=== PATIENT | female | born 1955 | race Caucasian/White ===

== ENCOUNTER 2025-06-29 13:09 | Inpatient (IN) ==
[2025-06-29] MEDS: 0.9 % SODIUM CHLORIDE 2,000 ML IV ONE (13:52)
[2025-06-29] MEDS: cefTRIAXone 1 GM VIAL IV ONE ×2 (13:52→19:01)
[2025-06-29 14:15] LABS: Basophils # (Auto) 0.03 K/mcL (0.00-0.30); Basophils % (Auto) 0.3 % (0.0-2.0); Eosinophils # (Auto) 0.03 K/mcL (0.00-0.70); Eosinophils % (Auto) 0.3 % (0.0-7.0); Hematocrit 40.7 % (34.1-44.9); Hemoglobin 14.2 g/dL (11.2-15.7); Lymphocytes # (Auto) 0.28 K/mcL (1.50-4.80); Lymphocytes % (Auto) 2.5 % (15.5-49.0); Mean Corpuscular HGB Conc 34.9 g/dL (31.0-36.0); Monocytes # (Auto) 0.28 K/mcL (0.10-0.90); Monocytes % (Auto) 2.5 % (1.0-12.0); Neutrophils % (Auto) 93.9 % (38.0-78.0); Platelet Count 271 K/mcL (140-440); RBC 4.59 M/mcL (3.59-5.38); WBC 11.1 K/mcL (4.5-11.0)
[2025-06-29 14:49] LABS: ALT/SGPT 44 U/L (<40); AST/SGOT 48 U/L (<32); Albumin 3.5 gm/dL (3.2-5.2); Albumin/Globulin Ratio 1.0 (1.0-2.3); Alkaline Phosphatase 118 U/L (39-117); Anion Gap 17.0 (8.0-16.0); Bilirubin,Total 1.4 mg/dL (0.1-1.0); Blood Urea Nitrogen 24 mg/dL (8-23); Calcium 10.4 mg/dL (8.6-10.4); Carbon Dioxide 20 mmol/L (22-30); Chloride 94 mmol/L (96-108); Globulin 3.6 gm/dL (2.2-3.7); Glucose 465 mg/dL (70-105); Potassium 4.0 mmol/L (3.3-5.1); Sodium 131 mmol/L (133-145)
[2025-06-29] MEDS: INSULIN REGULAR, HUMAN 1 UNIT/0.01 ML UNIT IV ONE (15:17)
[2025-06-29 15:59] LABS: Bacteria,Urine Many /hpf (0); Bilirubin,Urine NEGATIVE (Negative); Color,Urine RED; Glucose,Urine (UA) >=1000 mg/dL (Negative); Ketones,Urine TRACE mg/dL (Negative); Leukocyte Esterase,Urine SMALL /uL (Negative); PH,Urine 6.0 (5.0-9.0); Protein,Urine NEGATIVE (Negative); Specific Gravity,Urine <= 1.005 (1.000-1.035); Urobilinogen,Urine 0.2 mg/dL
[2025-06-29] MEDS: LACTATED RINGERS 1,000 ML IV SCH (17:45)
[2025-06-29 19:23] LABS: Anion Gap 13.0 (8.0-16.0); Blood Urea Nitrogen 22 mg/dL (8-23); Calcium 9.3 mg/dL (8.6-10.4); Carbon Dioxide 22 mmol/L (22-30); Chloride 99 mmol/L (96-108); Glucose 318 mg/dL (70-105); Potassium 3.4 mmol/L (3.3-5.1); Sodium 134 mmol/L (133-145)
[2025-06-29] MEDS: INSULIN REGULAR, HUMAN 1 UNIT/0.01 ML UNIT SQ ONE ×2 (20:01→20:22)
[2025-06-29] MEDS: KETOROLAC 15 MG/ML VIAL IV ONE (20:03)
[2025-06-29] MEDS: POTASSIUM CHLORIDE 20 MEQ TABLET PO ONE ×2 (20:03→20:22)
[2025-06-29] MEDS ORDERED: SENNOSIDES 1 TABLET PO PRN (20:34)
[2025-06-29] MEDS ORDERED: LACTULOSE 20 GM/30 ML ORAL.SOL PO PRN (20:34)
[2025-06-29] MEDS ORDERED: IPRATROPIUM/ALBUTEROL 3 ML AMPUL.NEB NEB PRN (20:34)
[2025-06-29] MEDS ORDERED: ONDANSETRON 4 MG/2 ML VIAL IV PRN (20:34)
[2025-06-29] MEDS ORDERED: DEXTROSE 50% 50 ML VIAL IV PRN (20:34)
[2025-06-29] MEDS ORDERED: DEXTROSE 31 GM ORAL.SUSP PO PRN (20:34)
[2025-06-29] MEDS: DOCUSATE SODIUM 100 MG CAPSULE PO SCH (21:38)
[2025-06-29] MEDS: INSULIN LISPRO 1 UNIT/0.01 ML UNIT SQ SCH (21:47)
[2025-06-29] MEDS: 0.9 % SODIUM CHLORIDE 10 ML SYRINGE IV SCH (21:47)
[2025-06-29] MEDS: PIPERACILLIN SODIUM/TAZOBACTAM 3.375 GM in DEXTROSE 5% IN WATER 50 ML IV SCH (21:47)
[2025-06-29] MEDS: HEPARIN 5,000 UNIT/ML VIAL SQ SCH (21:47)
[2025-06-30] MEDS: INSULIN LISPRO 1 UNIT/0.01 ML UNIT SQ SCH ×2 (00:55→12:20)
[2025-06-30] MEDS: INSULIN LISPRO 1 UNIT/0.01 ML UNIT SQ ONE ×2 (00:59→04:40)
[2025-06-30] MEDS: PIPERACILLIN SODIUM/TAZOBACTAM 3.375 GM in DEXTROSE 5% IN WATER 100 ML IV SCH (05:26)
[2025-06-30 07:00] LABS: ALT/SGPT 29 U/L (<40); AST/SGOT 29 U/L (<32); Albumin 2.9 gm/dL (3.2-5.2); Albumin/Globulin Ratio 0.9 (1.0-2.3); Alkaline Phosphatase 81 U/L (39-117); Anion Gap 12.0 (8.0-16.0); Bilirubin,Total 0.6 mg/dL (0.1-1.0); Blood Urea Nitrogen 25 mg/dL (8-23); Calcium 9.2 mg/dL (8.6-10.4); Carbon Dioxide 24 mmol/L (22-30); Chloride 101 mmol/L (96-108); Globulin 3.1 gm/dL (2.2-3.7); Glucose 202 mg/dL (70-105); Potassium 3.5 mmol/L (3.3-5.1); Sodium 137 mmol/L (133-145)
[2025-06-30 07:01] LABS: Phosphorous 2.8 mg/dL (2.5-4.5)
[2025-06-30 07:27] LABS: Basophils # (Auto) 0.02 K/mcL (0.00-0.30); Basophils % (Auto) 0.2 % (0.0-2.0); Eosinophils # (Auto) 0.02 K/mcL (0.00-0.70); Eosinophils % (Auto) 0.2 % (0.0-7.0); Hematocrit 35.9 % (34.1-44.9); Hemoglobin 12.4 g/dL (11.2-15.7); Lymphocytes # (Auto) 0.61 K/mcL (1.50-4.80); Lymphocytes % (Auto) 5.7 % (15.5-49.0); Mean Corpuscular HGB Conc 34.5 g/dL (31.0-36.0); Monocytes # (Auto) 0.76 K/mcL (0.10-0.90); Monocytes % (Auto) 7.1 % (1.0-12.0); Neutrophils % (Auto) 86.3 % (38.0-78.0); Platelet Count 154 K/mcL (140-440); RBC 3.93 M/mcL (3.59-5.38); WBC 10.7 K/mcL (4.5-11.0)
[2025-06-30] MEDS: OMEPRAZOLE 20 MG CAPSULE PO SCH (07:27)
[2025-06-30 07:54] LABS: Estimated Average Glucose(eAG) 341 mg/dL; Hemoglobin A1C 13.5 % Hgb (4.0-6.0)
[2025-06-30] MEDS: GLIMEPIRIDE 2 MG TABLET PO SCH (08:24)
[2025-06-30] MEDS: FERROUS SULFATE 325 MG TABLET PO SCH (08:24)
[2025-06-30] MEDS: INSULIN GLARGINE, HUMAN 1 UNIT/0.01 ML SQ SCH (08:26)
[2025-06-30] MEDS ORDERED: DEXTROSE 50% 50 ML VIAL IV PRN (09:21)
[2025-06-30] MEDS ORDERED: DEXTROSE 31 GM ORAL.SUSP PO PRN (09:21)
[2025-06-30] MEDS ORDERED: NOREPINEPHRINE BITARTRATE 16 MG in 0.9 % SODIUM CHLORIDE 234 ML IV SCH (09:30)
[2025-06-30] MEDS: 0.9 % SODIUM CHLORIDE 250 ML IV SCH (09:50)
[2025-06-30] MEDS: MAGNESIUM SULFATE 4 GM/100 ML BAG IV SCH (10:25)
[2025-06-30] MEDS: IBUPROFEN 600 MG TABLET PO PRN (10:28)
[2025-06-30] MEDS: NOREPINEPHRINE 250 ML IV SCH (10:51)
[2025-07-01 06:46] LABS: Basophils # (Auto) 0.02 K/mcL (0.00-0.30); Basophils % (Auto) 0.3 % (0.0-2.0); Eosinophils # (Auto) 0.11 K/mcL (0.00-0.70); Eosinophils % (Auto) 1.5 % (0.0-7.0); Hematocrit 34.2 % (34.1-44.9); Hemoglobin 11.6 g/dL (11.2-15.7); Lymphocytes # (Auto) 0.74 K/mcL (1.50-4.80); Lymphocytes % (Auto) 10.2 % (15.5-49.0); Mean Corpuscular HGB Conc 33.9 g/dL (31.0-36.0); Monocytes # (Auto) 0.60 K/mcL (0.10-0.90); Monocytes % (Auto) 8.3 % (1.0-12.0); Neutrophils % (Auto) 79.1 % (38.0-78.0); Platelet Count 126 K/mcL (140-440); RBC 3.72 M/mcL (3.59-5.38); WBC 7.2 K/mcL (4.5-11.0)
[2025-07-01 07:07] LABS: Phosphorous 2.8 mg/dL (2.5-4.5)
[2025-07-01 07:52] LABS: ALT/SGPT 24 U/L (<40); AST/SGOT 25 U/L (<32); Albumin 2.7 gm/dL (3.2-5.2); Albumin/Globulin Ratio 0.8 (1.0-2.3); Alkaline Phosphatase 84 U/L (39-117); Anion Gap 11.0 (8.0-16.0); Bilirubin,Total 0.8 mg/dL (0.1-1.0); Blood Urea Nitrogen 23 mg/dL (8-23); Calcium 8.8 mg/dL (8.6-10.4); Carbon Dioxide 24 mmol/L (22-30); Chloride 102 mmol/L (96-108); Globulin 3.3 gm/dL (2.2-3.7); Glucose 208 mg/dL (70-105); Potassium 3.0 mmol/L (3.3-5.1); Sodium 137 mmol/L (133-145)
[2025-07-01] MEDS: POTASSIUM CHLORIDE 10 MEQ/100 ML BAG IV SCH (12:41)
[2025-07-01] MEDS: guaiFENesin 600 MG TAB.SR.12H PO SCH (21:30)
[2025-07-02 05:37] LABS: Basophils # (Auto) 0.02 K/mcL (0.00-0.30); Basophils % (Auto) 0.5 % (0.0-2.0); Eosinophils # (Auto) 0.13 K/mcL (0.00-0.70); Eosinophils % (Auto) 3.0 % (0.0-7.0); Hematocrit 31.7 % (34.1-44.9); Hemoglobin 10.6 g/dL (11.2-15.7); Lymphocytes # (Auto) 1.03 K/mcL (1.50-4.80); Lymphocytes % (Auto) 23.5 % (15.5-49.0); Mean Corpuscular HGB Conc 33.4 g/dL (31.0-36.0); Monocytes # (Auto) 0.47 K/mcL (0.10-0.90); Monocytes % (Auto) 10.7 % (1.0-12.0); Neutrophils % (Auto) 61.8 % (38.0-78.0); Platelet Count 117 K/mcL (140-440); RBC 3.43 M/mcL (3.59-5.38); WBC 4.4 K/mcL (4.5-11.0)
[2025-07-02 06:00] LABS: Phosphorous 2.5 mg/dL (2.5-4.5)
[2025-07-02 06:21] LABS: ALT/SGPT 22 U/L (<40); AST/SGOT 30 U/L (<32); Albumin 2.4 gm/dL (3.2-5.2); Albumin/Globulin Ratio 0.8 (1.0-2.3); Alkaline Phosphatase 92 U/L (39-117); Anion Gap 8.0 (8.0-16.0); Bilirubin,Total 0.7 mg/dL (0.1-1.0); Blood Urea Nitrogen 18 mg/dL (8-23); Calcium 8.3 mg/dL (8.6-10.4); Carbon Dioxide 26 mmol/L (22-30); Chloride 102 mmol/L (96-108); Globulin 3.0 gm/dL (2.2-3.7); Glucose 174 mg/dL (70-105); Potassium 3.2 mmol/L (3.3-5.1); Sodium 136 mmol/L (133-145)
[2025-07-02] MEDS: POTASSIUM CHLORIDE 20 MEQ TABLET PO SCH (16:40)
[2025-07-03 06:01] LABS: Basophils # (Auto) 0.02 K/mcL (0.00-0.30); Basophils % (Auto) 0.5 % (0.0-2.0); Eosinophils # (Auto) 0.13 K/mcL (0.00-0.70); Eosinophils % (Auto) 3.5 % (0.0-7.0); Hematocrit 33.6 % (34.1-44.9); Hemoglobin 11.5 g/dL (11.2-15.7); Lymphocytes # (Auto) 0.93 K/mcL (1.50-4.80); Lymphocytes % (Auto) 25.1 % (15.5-49.0); Mean Corpuscular HGB Conc 34.2 g/dL (31.0-36.0); Monocytes # (Auto) 0.53 K/mcL (0.10-0.90); Monocytes % (Auto) 14.3 % (1.0-12.0); Neutrophils % (Auto) 55.8 % (38.0-78.0); Platelet Count 125 K/mcL (140-440); RBC 3.72 M/mcL (3.59-5.38); WBC 3.7 K/mcL (4.5-11.0)
[2025-07-03 06:10] LABS: ALT/SGPT 25 U/L (<40); AST/SGOT 28 U/L (<32); Albumin 2.8 gm/dL (3.2-5.2); Albumin/Globulin Ratio 0.9 (1.0-2.3); Alkaline Phosphatase 102 U/L (39-117); Anion Gap 9.0 (8.0-16.0); Bilirubin,Total 0.6 mg/dL (0.1-1.0); Blood Urea Nitrogen 15 mg/dL (8-23); Calcium 8.6 mg/dL (8.6-10.4); Carbon Dioxide 27 mmol/L (22-30); Chloride 102 mmol/L (96-108); Globulin 3.1 gm/dL (2.2-3.7); Glucose 173 mg/dL (70-105); Potassium 3.3 mmol/L (3.3-5.1); Sodium 138 mmol/L (133-145)
[2025-07-03 06:11] LABS: Phosphorous 2.6 mg/dL (2.5-4.5)
[2025-07-03] MEDS: MEROPENEM 1 GM in 0.9 % SODIUM CHLORIDE 50 ML IV SCH (09:47)
[2025-07-03] MEDS ORDERED: ALTEPLASE 2 MG VIAL IV PRN (15:03)
[2025-07-03] MEDS: 0.9 % SODIUM CHLORIDE 10 ML SYRINGE IV PRN (16:43)
[2025-07-03] MEDS: HEPARIN 10 UNITS/ML 5ML FLUSH IV SCH ×2 (21:03)
[2025-07-03] MEDS: 0.9 % SODIUM CHLORIDE 10 ML SYRINGE IV SCH (21:03)
[2025-07-04 07:57] LABS: ALT/SGPT 23 U/L (<40); AST/SGOT 26 U/L (<32); Albumin 2.9 gm/dL (3.2-5.2); Albumin/Globulin Ratio 1.0 (1.0-2.3); Alkaline Phosphatase 102 U/L (39-117); Anion Gap 9.0 (8.0-16.0); Basophils # (Auto) 0.02 K/mcL (0.00-0.30); Basophils % (Auto) 0.5 % (0.0-2.0); Bilirubin,Direct 0.4 mg/dL (<0.3); Bilirubin,Total 0.5 mg/dL (0.1-1.0); Blood Urea Nitrogen 11 mg/dL (8-23); Calcium 8.7 mg/dL (8.6-10.4); Carbon Dioxide 27 mmol/L (22-30); Chloride 102 mmol/L (96-108); Eosinophils # (Auto) 0.10 K/mcL (0.00-0.70); Eosinophils % (Auto) 2.5 % (0.0-7.0); Globulin 3.0 gm/dL (2.2-3.7); Glucose 156 mg/dL (70-105); Hematocrit 32.8 % (34.1-44.9); Hemoglobin 11.3 g/dL (11.2-15.7); Lymphocytes # (Auto) 1.10 K/mcL (1.50-4.80); Lymphocytes % (Auto) 27.2 % (15.5-49.0); Mean Corpuscular HGB Conc 34.5 g/dL (31.0-36.0); Monocytes # (Auto) 0.57 K/mcL (0.10-0.90); Monocytes % (Auto) 14.1 % (1.0-12.0); Neutrophils % (Auto) 54.2 % (38.0-78.0); Phosphorous 2.3 mg/dL (2.5-4.5); Platelet Count 125 K/mcL (140-440); Potassium 3.8 mmol/L (3.3-5.1); RBC 3.62 M/mcL (3.59-5.38); Sodium 138 mmol/L (133-145); Triglycerides 141 mg/dL (<150); Uric Acid 3.6 mg/dL (2.5-8.0); WBC 4.1 K/mcL (4.5-11.0)
[2025-07-04] MEDS ORDERED: LIDOCAINE 1% 10 ML VIAL SQ ONE (10:05)
[2025-07-04] MEDS ORDERED: SODIUM CHLORIDE IRRIG SOLUTION 250 ML BOTTLE IRR ONE (10:05)
[2025-07-04] MEDS ORDERED: HEPARIN 10 UNITS/ML 5ML FLUSH IV ONE (10:05)
[2025-07-04] MEDS: NEUTRA PHOS 1 PACKET PO SCH (10:21)
[2025-07-04] MEDS: SODIUM PHOSPHATE 15 MMOL in DEXTROSE 5% IN WATER 250 ML IV SCH (10:21)
[2025-07-04] MEDS: ERTAPENEM 1 GM in 0.9 % SODIUM CHLORIDE 50 ML IV SCH (14:02)
== END 2025-07-04 16:08 | disposition home or self-care (01) | DRG 871 ==
LOC: ED 13:09 → ICU 20:30 → MEDSUR 07-03 19:06
PROVIDERS: ADMIT Internal Medicine; ATTEND Student in an Organized Health Care Education/Training Program